=== PATIENT | female | born 1970 | race Caucasian/White ===

== ENCOUNTER 2016-12-02 12:58 | Outpatient (RCR) | payer BC ==
[~2016-12-02 12:58] MED LIST: COLA100C PO; HYDR-3713 PO; IBUP600T26 PO; IBUP80TA PO; IRON PO; NEXI40CA PO; NORCOTAB PO; PERC5TAB6 PO; PROBCAP4 PO; SING10TA32 PO; VALA500T PO
== END 2016-12-22 | disposition home or self-care (01) ==
LOC: M OUTALCOH 12:58
PROVIDERS: ATTEND Psychiatry & Neurology Psychiatry
DX: F11.10 Opioid abuse, uncomplicated (principal); F17.200 Nicotine dependence, unspecified, uncomplicated

== ENCOUNTER 2017-01-08 10:00 | Outpatient (RCR) | payer BC | END 2017-01-19 | LOC: M OUTALCOH 10:00 | PROVIDERS: ATTEND Psychiatry & Neurology Psychiatry ==